=== PATIENT | male | born 2000 | race African-American/Black ===

== ENCOUNTER 2018-09-17 20:07 | Emergency (ER) | payer SELFPAY ==
[~2018-09-17] VITALS: Ht 182.9 cm; Wt 70.3 kg
--- NOTE | 2018-09-17 20:25 | NUR ---
BIB SELF FROM HOME. AAOX4. NAD, BREATHING EVEN AND UNLABORED. AMBULATORY WITH LIMP. C/O R KNEE PAIN SINCE MEMORIAL DAYS AFTER PLAYING BASKETBALL. PT STATES THAT HE TWISTED HIS KNEE. PT RATE HIS PAIN @ 8/10. DENIES TRAUMA. TO ER BED 2. MD AT BEDSIDE FOR EVAL. AWAITING ORDERS.
--- NOTE | 2018-09-17 21:45 | NUR ---
Patient discharged to home in stable condition. Written and verbal after care instructions given. Patient verbalizes understanding of instruction. Pt ambulatory with a limp, RLE with knee imobilizer and crutches. Education given to pt.
[2018-09-17 21:47] VITALS: BP 112/60
== END 2018-09-17 21:45 | disposition home or self-care (01) ==
LOC: ER 20:13
DX: S83.8X1A Sprain of other specified parts of right knee, initial encounter (principal); Z98.890 Other specified postprocedural states; X50.1XXA Overexertion from prolonged static or awkward postures, initial encounter; Y93.67 Activity, basketball; Y92.310 Basketball court as the place of occurrence of the external cause; Y99.8 Other external cause status
CPT/HCPCS: 73564-TC

== ENCOUNTER 2018-11-23 19:38 | Emergency (ER) | payer OTHER ==
[~2018-11-23] VITALS: Ht 182.9 cm; Wt 68.0 kg
[2018-11-23 19:58] VITALS: BP 122/69
[2018-11-23] MEDS ORDERED: LIDOCAINE 1%-EPI 1:100,000 20 ML VIAL ONE (20:14)
[2018-11-23] MEDS ORDERED: AZITHROMYCIN 250 MG TABLET PO ONE (20:30)
[2018-11-23] MEDS ORDERED: CEFTRIAXONE 500 MG VIAL IM ONE (20:30)
[2018-11-23] MEDS ORDERED: LIDOCAINE /MPF 1% VIAL 5 ML VIAL ONE (20:39)
[2018-11-23] MEDS ORDERED: AZITHROMYCIN 250 MG TABLET ONE (20:39)
[2018-11-23] MEDS ORDERED: CEFTRIAXONE 500 MG VIAL ONE (20:39)
== END 2018-11-23 20:54 | disposition home or self-care (01) ==
LOC: ER 19:42
DX: L02.213 Cutaneous abscess of chest wall (principal); Z98.890 Other specified postprocedural states
CPT/HCPCS: 10060; 87491; 87591; 96372; 99283; A6407; J0696; J3490 ×2